=== PATIENT | male | born 1945 | race Caucasian/White ===

== ENCOUNTER → 2017-04-26 | Outpatient (CLI) | payer MEDICARE ==
--- NOTE | 2017-04-26 14:21 | XR ---
EXAMINATION TYPE: XR KUB DATE OF EXAM: 04/26/2017 COMPARISON: NONE HISTORY: Pain TECHNIQUE: One view abdominal series FINDINGS: The osseous structures are intact. The bowel gas pattern is nonspecific. 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 There is a calcification involving the lower pole calyx le ft kidney measuring a maximal dimension of 1 cm. There are 2 adjacent 2 mm calcifications. Cardiac leads noted overlying the lower chest. IMPRESSION: 1. Left-sided nephrolithiasis with largest fragment measuring 1 cm. There are 2 additional 2 mm calcu li also seen adjacent.
== END | disposition home or self-care (01) ==
LOC: RADXRMAIN 13:59
PROVIDERS: ATTEND Urology
DX: N20.0 Calculus of kidney (principal)
CPT/HCPCS: 74000

== ENCOUNTER → 2017-04-30 | Outpatient (CLI) | payer MEDICARE ==
--- NOTE | 2017-04-30 10:18 | CT ---
EXAMINATION TYPE: CT abdomen pelvis wo con DATE OF EXAM: 04/30/2017 HISTORY: Known stone on the left presents with right-sided flank and lower quadrant pain, calculus pe r order. CT DLP: 795.3 mGycm. Automated Exposure Control for Dose Reduction was Utilized. TECHNIQUE: CT scan of the abdomen and pelvis is performed without oral or IV contrast. COMPARISON: NONE FINDINGS: Within the limitations of a non-contrast study, the following observations are made. LUNG BASES: There is partial visualization of right-sided pacemaker wires. There is tiny pericardial effusion inferiorly. LIVER/GB: Cholecystectomy clips are present. PANCREAS: No significant abnormality is seen. SPLEEN: No significant abnormality is seen. ADRENALS: No significant abnormality is seen. KIDNEYS: There is cortical thinning in both kidneys felt to reflect product of chronic medical renal disease. No definite right-sided nephrolithiasis or hydronephrosis. There is punctate 2 mm calculus i n upper to mid pole calyx left kidney on coronal image 56 there is larger collecting system calculus lower pole level on axial image 59 and coronal image 57 measuring 11 mm on long axis on both axial an d coronal planes. No left-sided hydronephrosis or obstructing ureter calculi are seen. No intralumina l calculi in the poorly distended bladder is present. BOWEL: Portion of normal appearing appendix near axial image 100 is noted. Visualized appendix is angela ewhat small in length. No surrounding inflammatory changes seen. No suspicious small or large bowel d ilatation is present. Some scattered colonic diverticula are present including involvement of right c olon. There is no CT evidence for acute diverticulitis. GENITAL ORGANS: Prostate gland is heterogeneous in appearance and enlarged in size bulging on bladder base, underlying BPH is suspected, clinical correlation advised. LYMPH NODES: No greater than 1cm abdominal or pelvic lymph nodes are appreciated. OSSEOUS STRUCTURES: Osseous structures are demineralized. There is multilevel spurring throughout the thoracolumbar spine. There is disc space narrowing with vacuum disc phenomenon L4-L5 and L5-S1 level s. There is endplate spurring and subchondral cystic change. OTHER: No significant additional abnormality is seen. IMPRESSION: There is 11 mm calculus lower pole left renal collecting system. No hydronephrosis or obs tructing renal calculi are seen bilaterally. No significant acute finding is evident.
== END | disposition home or self-care (01) ==
LOC: RADCTMAIN 08:33
PROVIDERS: ATTEND Urology
DX: N20.0 Calculus of kidney (principal)
CPT/HCPCS: 74176